=== PATIENT | female | born 1960 | race Caucasian/White ===

== ENCOUNTER 2016-11-24 09:10 | Emergency (ER) | payer OTHER ==
[~2016-11-24] VITALS: Ht 167.6 cm; Wt 65.9 kg
[2016-11-24 09:13] VITALS: BP 156/95; RESP 15; O2SAT 100
--- NOTE | 2016-11-24 09:21 | ED.REPORT ---
HPI-URI / Cough / Cold Date of Service Nov 24, 2016 ED Provider: Wade Leija MD Patient is a 56 year old female who presents to the ED complaining of left eye swelling onset 5 days ago. Associated symptoms include itching and eye discharge. She reports that she still has a slight cough but after she clears it , the cough goes away. Patient denies fever, rash, vomiting, diarrhea or sore throat. The patient states that she had a cold a week ago, where she was experiencing sinus congestion. When she went to 4 days ago, she was diagnosed with a sinus infection and was started on Doxycycline. She states that her eye is still swollen and has a foreign body sensation. Nursing Notes Stated Complaint: LT EYE PAIN/ITCHING, POSS SINUS INFECTION Chief Complaint: ENT & Mouth Nursing Notes Reviewed: Yes Allergies: Coded Allergies: nitrofurantoin (Verified Allergy, Mild, hives, 11/24/16) Uncoded Allergies: PENICILLIN (Allergy, Intermediate, anaphylaxis, 11/24/16) Scheduled Gentamicin Sulfate (Gentamicin 0.3% Ophthalmic Solution) 5 Ml Drops 2 DRP LEFT_ EYE QID Sulfamethoxazole/Trimeth 800-160 mg (Bactrim DS) 1 Each Tablet 1 TABLET PO BID General Time Seen by MD: 09:20 Chief Complaint Other (left eye swelling) Hx Obtained From: Patient Arrived By: Walk-in Onset Occurred: 5 days ago Symptom Duration: Since onset Quality: Itching Recent Healthcare: Recent doctor visit Similar Sx Previous: Yes Past Medical History Past Medical History thyroid Smoking History Light Tobacco Smoker Social History Other Social History: Good social support Ambulatory Status Independent Review of Systems Review of Systems Note: +eye swelling Constitutional: Denies: Fever Eyes: Reports: Discharge left Ears / Nose / Throat: Denies: Sore throat Respiratory: Reports: Non-productive cough GI: Denies: Diarrhea, Vomiting Skin: Denies Rash Complete sys rev & neg: except as marked. Physical Exam Initial Vital Signs Vital Signs (First) Date Time Temp Pulse Resp B/P Pulse Ox O2 Delivery O2 Flow Rate FiO2 11/24/16 09:13 36.5 81 15 156/95 100 Room Air Initial VS: Reviewed General/Constitutional: Awake, Alert, No acute distress ENT: Mucous membranes moist cobblestoning of the pharynx unable to visualize TMs due to cerumen blockage Respiratory / Chest: Atraumatic, Breath sounds NL, Breath sounds = bilat, No respiratory distress Head / Eyes: Normocephalic, PERRL, EOMI, Conjunctiva NL .5cm ulcer in the mucous membrane area of the lower eyelid of the left eye with mild erythema and edema of the lower lid Cardiovascular: Heart rate NL, Regular rhythm, Heart sounds NL Skin: Atraumatic, Color NL, No rash, Warm, Dry Neurologic: Oriented X3, Speech NL Psychiatric: Affect NL, Mood NL Re-Eval/Medical Decision Re-Evaluation/Progress : Time of Eval: 09:38 Re-Evaluation/Progress Note: Discussed plan for antibiotic eye drops and use of over the counter decongestants and flushes. Plan for discharge. Patient understands and agrees to plan. All questions were addressed. 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 You also most likely have a sinus infection. Take Bactrim 2x a day for two weeks. Use the eye drops 3-4x a day. You should also try using 1-2 drops of baby shampoo, mixed with water and use a Q-tip to gently wash the lower eyelid. You can also use moist, warm compresses on your eye. Do not use your contacts until your eye is back to normal plus 2-3 days. Be sure to drink plenty of fluids. This will help make the mucous thin and easier to come out. Using a nasal flush system can also help clear you sinuses. Try to do this 2-3 times a day. You can also try use a nasal decongestant. Do not use an antihistamine (like Benadryl). Follow up with your primary care physician next week. If your eye has still not improved by Sunday, call the referred architectural superintendent to schedule a follow up appointment. Return to the emergency department if you develop any new or concerning symptoms. Stop smoking. Referrals: Gabrielle Weathers MD, YuJin DO Scribe Attestation Portions of this note were transcribed by Stephenie Thorpe. I, Dr. Leija personally performed the history, physical exam and medical decision-making; I reviewed and confirmed the accuracy of the information in the transcribed note. Signed by: José Luis Rojo, 11/24/16 copies to: Gabrielle Weathers MD; Maryellen Glover Kirk H MD Nov 24, 2016 09:21 Elizabeth Thorpe Nov 24, 2016 09:31
[2016-11-24] MEDS ORDERED: SULF1TAB7 PO (09:50)
[2016-11-24] MEDS ORDERED: GENT5DRO26 LEFT_EYE (09:50)
== END 2016-11-24 10:24 | disposition home or self-care (01) ==
LOC: SED 09:10
DX: H01.015 Ulcerative blepharitis left lower eyelid (principal); J01.90 Acute sinusitis, unspecified; Z88.1 Allergy status to other antibiotic agents